=== PATIENT | female | born 1990 ===

== ENCOUNTER 2018-11-06 14:18 | Emergency (ER) | payer SELFPAY ==
[2018-11-06 14:38] VITALS: O2SAT 100
--- NOTE | 2018-11-06 15:46 | C.PDOC ---
History Of Present Illness 28 year old female, with no significant past medical history, presents to the ED for evaluation of right upper quadrant and right lower quadrant abdominal pain which began upon waking at around 0800 today. Patient describes her pain as a squeezing sensation and took Motrin earlier today without improvement. She denies history of similar symptoms in the past and reports her last menstrual period was one week ago (normal). Patient denies fever, chills, nausea, vomiting, constipation, diarrhea, night sweats, recet injury/trauma, vaginal discharge or rash. Time Seen by Provider: 11/06/18 15:46 Chief Complaint (Nursing): Abdominal Pain History Per: Patient History/Exam Limitations: no limitations Onset/Duration Of Symptoms: Hrs Current Symptoms Are (Timing): Still Present Location Of Pain/Discomfort: RUQ, RLQ Quality Of Discomfort: "Pain", Other (squeezing ) Associated Symptoms: denies: Fever, Chills, Vomiting, Diarrhea, Constipation Additional History Per: Patient Abnormal Vaginal Bleeding: No Past Medical History Reviewed: Historical Data, Nursing Documentation, Vital Signs Vital Signs: Last Vital Signs Temp 98.6 F 11/06/18 14:35 Pulse 66 11/06/18 14:35 Resp 20 11/06/18 14:35 BP 119/80 11/06/18 14:35 Pulse Ox 100 11/06/18 14:35 - Medical History PMH: No Chronic Diseases Surgical History: No Surg Hx Family History: States: Unknown Family Hx - Social History Hx Alcohol Use: No Hx Substance Use: No - Immunization History Hx Tetanus Toxoid Vaccination: No Hx Influenza Vaccination: No Hx Pneumococcal Vaccination: No Review Of Systems Constitutional: Negative for: Fever, Chills, Sweats Gastrointestinal: Positive for: Abdominal Pain (right upper and lower quadrants ). Negative for: Nausea, Vomiting, Diarrhea, Constipation Genitourinary: Negative for: Vaginal Discharge Skin: Negative for: Rash Physical Exam - Physical Exam Appears: Non-toxic, No Acute Distress Skin: Normal Color, Warm, Dry Head: Atraumatic, Normacephalic Eye(s): bilateral: Normal Inspection Oral Mucosa: Moist Neck: Supple Chest: Symmetrical, No Deformity, No Tenderness Cardiovascular: Rhythm Regular, No Murmur Respiratory: Normal Breath Sounds, No Rales, No Rhonchi, No Wheezing Gastrointestinal/Abdominal: Soft, Tenderness (to right upper and lower quadrants ), No Guarding, No Rebound Extremity: Normal ROM, Capillary Refill (less than 2 seconds ) Neurological/Psych: Oriented x3, Normal Speech, Normal Cognition ED Course And Treatment - Laboratory Results Result Diagrams: 11/06/18 16:05 11/06/18 16:05 O2 Sat by Pulse Oximetry: 100 (on RA) Pulse Ox Interpretation: Normal Medical Decision Making Medical Decision Making: Impression: 28 year old female with right upper and lower quadrant abdominal pain Differential diagnoses include but are not limited to: gastritic vs pancreatitis vs gallbladder issue vs appendicitis Plan: * bloodwork * urinalysis * US Gallbladder * CT A/P * Pepcid IVP * IV Fluids * reassess and disposition Progress: Bloodwork, urinalysis, US GallBladder, CT A/P ordered and reviewed. Pepcid IVP and IV fluids 1721 US unremarkable labs largely unremarkable 1750 pt denies any constipation, BM earlier in the day normal No fall or trauma. Gastritis on CT pt notes improvement of pain clear for d/c home Disposition - Disposition Referrals: Khai Robins MD [Staff Provider] - [facility] [Outside] [facility] [Outside] [facility] [Outside] Disposition: HOME/ ROUTINE Disposition Time: 17:51 Condition: GOOD Prescriptions: Famotidine [Pepcid] 20 mg PO Q24H PRN 5 Days #5 tab PRN Reason: Gi Distress Instructions: Gastritis (DC) Forms: [facility] (Dutch) Print Language: LUXEMBOURGISH - Clinical Impression Clinical Impression: Gastritis - Scribe Statement The provider has reviewed the documentation as recorded by the Scribe (Deneen Chaudhry) Provider Attestation: All medical record entries made by the Scribe were at my direction and personally dictated by me. I have reviewed the chart and agree that the record accurately reflects my personal performance of the history, physical exam, medical decision making, and the department course for this patient. I have also personally directed, reviewed, and agree with the discharge instructions and dis position.
[2018-11-06] MEDS ORDERED: Sodium Chloride 0.9% 1,000 ML IV SCH (16:00)
[2018-11-06 16:09] LABS: BASO # 0.1 K/uL (0.0-0.2); BASO % 1.1 % (0.0-2.0); EOS # 0.2 K/uL (0.0-0.7); EOS % 3.3 % (0.0-4.0); LYMPH # 2.1 K/uL (1.0-4.3); LYMPH % 35.1 % (20.0-40.0); MEAN CELL VOLUME 95.1 fL (81.0-99.0); MEAN CORPUSCULAR HGB CONC 32.6 g/dL (33.0-37.0); MEAN PLATELET VOLUME 7.2 fL (7.2-11.7); MONO # 0.3 K/uL (0.0-0.8); MONO % 5.1 % (0.0-10.0); NEUT # 3.3 K/uL (1.8-7.0); NEUT % 55.4 % (50.0-75.0); RBC 4.53 Mil/uL (3.80-5.20); RED CELL DISTRIBUTION WIDTH 13.2 % (11.5-14.5); WHITE BLOOD COUNT 5.9 K/uL (4.8-10.8)
[2018-11-06 16:22] LABS: SQUAMOUS EPITHIAL 5 /hpf (0-5); URINE BACTERIA RARE (<OCC); URINE BILIRUBIN NEGATIVE (NEGATIVE); URINE CLARITY Clear (Clear); URINE COLOR Straw (YELLOW); URINE GLUCOSE (UA) NORMAL (Normal); URINE LEUKOCYTE ESTERASE NEG Leu/uL (Negative); URINE PROTEIN NEGATIVE (NEGATIVE); URINE UROBILINOGEN NORMAL mg/dL (0.2-1.0)
[2018-11-06 16:33] LABS: ALB/GLOB RATIO 1.8 (1.0-2.1); ALBUMIN 4.9 g/dL (3.5-5.0); ALT/SGPT 17 U/L (9-52); AST/SGOT 29 U/L (14-36); BLOOD UREA NITROGEN 7 mg/dL (7-17); CALCIUM 8.9 mg/dl (8.6-10.4); GFR NON-AFRICAN AMERICAN > 60; LIPASE 48 U/L (23-300)
[2018-11-06 16:36] LABS: URINE BLOOD 1+ (NEGATIVE)
[2018-11-06] MEDS ORDERED: Iohexol 350mg/ml 100 ML ONE (16:50)
--- NOTE | 2018-11-06 17:15 | US ---
Date of service: 11/06/2018 HISTORY: ruq pain COMPARISON: None available TECHNIQUE: Sonographic evaluation of the right upper quadrant of the abdomen. FINDINGS: LIVER: Measures 8.9 cm in length and appears within normal limits of shape, size, and echogenicity. No focal hepatic mass identified. The main portal vein appears patent with normal directional flow. No intrahepatic bile duct dilatation. GALLBLADDER: No gallstones. No gallbladder wall thickening or pericholecystic edema. Negative sonographic Latham's sign as assessed by the electroencephalograph technician. COMMON BILE DUCT: Measures 4 mm. PANCREAS: Not well-visualized. RIGHT KIDNEY: Measures approximately 10.9 x 4.0 x 4.6 cm. No obstructing calculus or hydronephrosis identified. AORTA: Limited visualization appears grossly unremarkable. IVC: Limited visualization appears grossly unremarkable. OTHER FINDINGS: None . IMPRESSION: No acute findings identified.
--- NOTE | 2018-11-06 17:49 | CT ---
Date of service: 11/06/2018 PROCEDURE: CT Abdomen and Pelvis with contrast HISTORY: rlq, ruq pain COMPARISON: None available TECHNIQUE: Contrast dose: 100 mL Omnipaque 350 Radiation dose: Total exam DLP = 606.46 mGy-cm. This CT exam was performed using one or more of the following dose reduction techniques: Automated exposure control, adjustment of the mA and/or kV according to patient size, and/or use of iterative reconstruction technique. FINDINGS: LOWER THORAX: No visible consolidation, pleural effusion, or pneumothorax. LIVER: Unremarkable. GALLBLADDER AND BILE DUCTS: Unremarkable. PANCREAS: Unremarkable. SPLEEN: Unremarkable. ADRENALS: Unremarkable. KIDNEYS AND URETERS: The kidneys enhance symmetrically. No hydronephrosis or obstructing calculus identified. VASCULATURE: No aortic aneurysm. No atherosclerotic calcification or mural plaque present. BOWEL: Nonspecific gastric wall thickening. The stomach is nondistended. Correlate clinically for possibility of gastritis. Lack of oral contrast limits evaluation for bowel pathology. Redundant colon. Bowel loops appear within normal limits of caliber without evidence of obstruction. Diffuse moderate constipation. APPENDIX: The presumed appendix resides within the mid lower abdomen (for example coronal images 2234) and appears within normal limits of caliber. No secondary signs of acute appendicitis. PERITONEUM: No significant free fluid. No definite free air. LYMPH NODES: No bulky adenopathy identified. BLADDER: Thick-walled under distended urinary bladder. Unremarkable. REPRODUCTIVE: Unremarkable. BONES: No acute osseous abnormality is detected. OTHER FINDINGS: None. IMPRESSION: Thick-walled under distended urinary bladder. Recommend correlation with urinalysis. Redundant colon. Diffuse moderate constipation. Nonspecific gastric wall thickening. The stomach is nondistended. Correlate clinically for possibility of gastritis. Additional findings as above.
[2018-11-06 18:07] VITALS: BP 115/78; PULSE 65; RESP 16; TEMP 98.7
== END 2018-11-06 18:06 | disposition home or self-care (01) ==
LOC: C.ER 14:18
DX: K29.70 Gastritis, unspecified, without bleeding (principal)
CPT/HCPCS: 74177; 76705; 80053; 81001; 81025; 83690; 83735; 85025; 96374; 99284; J7030; Q9967